=== PATIENT | female | born 1980 | race Caucasian/White ===

== ENCOUNTER 2016-10-03 09:02 | Emergency (ER) | payer OTHER ==
[~2016-10-03] VITALS: Ht 165.1 cm; Wt 50.0 kg
[2016-10-03 09:04] VITALS: BP 116/60; PULSE 80; RESP 20; TEMP 97.6; O2SAT 96
[2016-10-03] MEDS ORDERED: IBUP200T2 PO (09:38)
[2016-10-03] MEDS ORDERED: AMOX500T PO (09:41)
--- NOTE | 2016-10-03 09:42 | PD ---
HPI Chief Complaint: Cold / Flu Symptoms Time Seen by Provider: 09:25 Travel History International Travel<30 days: No Contact w/Intl Traveler<30days: No Traveled to known affect area: No History of Present Illness HPI 35-year-old female presents emergency department for evaluation of left ear pain 1 day. Patient reports approximately 7 days ago she developed URI type symptoms which included sore throat, nasal congestion, cough. She reports the left ear pain became increasingly more painful over the last 24 hours. She denies fever or chills. She reports generalized fatigue. No aggravating or alleviating factors. Symptoms severity mild. PFSH Past Medical History Medical History: Denies Significant Hx ?: Unknown Social History Tobacco Use: No Allergies-Medications (Allergen,Severity, Reaction): Coded Allergies: No Known Allergies (Unverified , 10/03/16) Review of Systems Except as stated in HPI: all other systems reviewed are Neg General / Constitutional: No: Fever Eyes: No: Visual changes HENT: Positive: Earache Cardiovascular: No: Chest Pain or Discomfort Respiratory: No: Shortness of Breath Gastrointestinal: No: Abdominal Pain Physical Exam Narrative GENERAL: Well-nourished, well-developed patient. SKIN: Focused skin assessment warm/dry. HEAD: Normocephalic. EYES: No scleral icterus. No injection or drainage. EAR: Left TM erythema, bulging, loss of landmarks. No perforation. No canal swelling. No mastoid tenderness. NECK: Supple, trachea midline. No JVD or lymphadenopathy. CARDIOVASCULAR: Regular rate and rhythm without murmurs, gallops, or rubs. RESPIRATORY: Breath sounds equal bilaterally. No accessory muscle use. GASTROINTESTINAL: Abdomen soft, non-tender, nondistended. MUSCULOSKELETAL: No cyanosis, or edema. BACK: Nontender without obvious deformity. No CVA tenderness. Data Data Last Documented VS Vital Signs Date Time Temp Pulse Resp B/P Pulse Ox O2 Delivery O2 Flow Rate FiO2 10/03/16 09:04 97.6 80 20 116/60 96 Room Air MDM Medical Decision Making Medical Screen Exam Complete: Yes Emergency Medical Condition: Yes Differential Diagnosis URI, otitis media, bronchitis, influenza Narrative Course 35-year-old female with chief complaint of left ear pain 1 day. Patient reports URI symptoms for the prior 7 days. She denies fever chills. Physical exam is consistent with otitis media. Patient be treated with antibiotics and discharged home. Diagnosis Primary Impression: Otitis media Qualified Code: H66.002 - Acute suppurative otitis media of left ear without spontaneous rupture of tympanic membrane, recurrence not specified Referrals: Primary Care Physician Additional Instructions: Take the antibiotics as prescribed. Take [id number] Motrin [id number] milligrams every 6-8 hours as needed for pain. Stable hydrated by drinking plenty of fluids. Follow-up with her primary doctor. Scripts Amoxicillin 500 Mg [id number] Mg PO TID #30 TAB Ref 0 Prov:Tasia Grimaldo 10/03/16 Disposition: 01 DISCHARGE HOME Condition: Stable Tasia Grimaldo Oct 03, 2016 09:42
== END 2016-10-03 10:10 | disposition home or self-care (01) ==
LOC: NEPK 09:02
DX: H66.92 Otitis media, unspecified, left ear (principal); J02.9 Acute pharyngitis, unspecified; R09.81 Nasal congestion; R05 Cough; R53.83 Other fatigue
CPT/HCPCS: 99283